=== PATIENT | female | born 1995 | race Caucasian/White ===

== ENCOUNTER 2022-01-06 10:03 | Inpatient (IN) | payer OTHER ==
[~2022-01-06] VITALS: Ht 162.5 cm; Wt 75.3 kg
[2022-01-06 10:09] VITALS: BP 125/80
[2022-01-06 10:50] LABS: BASO # 0.1 10*3/uL (0.0-0.1); BASO % 0.8 % (0.0-1.0); EOS # 0.5 10*3/uL (0.0-0.4); EOS % 6.8 % (1.0-4.0); LYMPH # 1.6 10*3/uL (1.3-4.4); LYMPH % 20.4 % (27.0-41.0); MEAN CELL VOLUME 87.9 fl (81.0-99.0); MEAN PLATELET VOLUME 11.6 fl (9.6-12.3); MONO # 0.6 10*3/uL (0.1-1.0); MONO % 7.9 % (3.0-9.0); NEUT # 4.9 10*3/uL (2.3-7.9); NEUT % 63.8 % (47.0-73.0); PLATELET COUNT AUTOMATED 181 10*3/uL (130-400); RED BLOOD COUNT 4.89 10*6/uL (4.10-5.10); RED CELL DISTRI WIDTH 13.2 % (0-14.5); WHITE BLOOD COUNT 7.7 10*3/uL (4.8-10.8)
[2022-01-06 11:00] LABS: ACT PARTIAL THROMBO TIME 32.2 SECONDS (20.0-32.1)
[2022-01-06 11:05] LABS: BILIRUBIN 2+ (Negative); BLOOD Trace-Lysed (Negative); CLARITY Turbid (Clear); COLOR Dark Yellow (Yellow); GLUCOSE Negative (Negative); KETONE 1+ (Negative); LEUKO ESTERASE 2+ (Negative); NITRITE Negative (Negative); SPECIFIC GRAVITY >= 1.030 (1.001-1.030)
[2022-01-06 11:07] LABS: ALKALINE PHOSPHATASE 44 U/L (45-117); BUN 8 mg/dl (7-24); CHLORIDE 104 mmol/L (98-107); CREATININE 0.96 mg/dL (0.55-1.02); POTASSIUM 3.9 mmol/L (3.5-5.1); SGOT/AST 25 IU/L (3-35); SGPT/ALT 31 U/L (12-78); SODIUM 139 mmol/L (136-145); TOTAL PROTEIN 7.3 gm/dL (6.4-8.2)
[2022-01-06 11:13] LABS: BETA-HCG, QUANT < 1.0 mIU/mL (1-3); ETHYL ALCOHOL < 3.0 mg/dl (<3)
[2022-01-06 11:15] LABS: BACTERIA 3+; EPITHELIAL CELLS 41-50; MUCOUS 3+; WBC TNTC wbc/hpf (0-5)
[2022-01-06 11:21] LABS: URINE AMPHETAMINES > 1000 (1000ng/ml); URINE BARBITURATES < 200 (200ng/ml); URINE BENZODIAZEPINES < 200 (200ng/ml); URINE CANNABINOIDS (THC) < 50 (50ng/ml); URINE COCAINE > 300 (300ng/ml); URINE METHADONE < 300 (300ng/ml); URINE OPIATES < 300 (300ng/ml)
[2022-01-06 11:24] LABS: URINE PHENCYCLIDINE < 25 (25ng/ml)
[2022-01-06 14:15] VITALS: BP 127/76
[2022-01-06 14:29] VITALS: BP 124/76
[2022-01-06 16:00] VITALS: BP 131/78
[2022-01-06 20:00] VITALS: BP 120/71
[2022-01-07] VITALS: BP 129/75
[2022-01-07 08:00] VITALS: BP 105/79
[2022-01-07 12:00] VITALS: BP 117/67
[2022-01-07 16:00] VITALS: BP 119/69
[2022-01-07 20:00] VITALS: BP 124/69
[2022-01-08] VITALS: BP 115/69
[2022-01-08 08:00] VITALS: BP 121/74
[2022-01-08 12:00] VITALS: BP 121/68
[2022-01-08 16:00] VITALS: BP 126/68
[2022-01-08 20:00] VITALS: BP 116/71
[2022-01-09] VITALS: BP 116/58
[2022-01-09 05:40] LABS: CREATININE 1.01 mg/dL (0.55-1.02)
[2022-01-09 06:11] LABS: BASO # 0.1 10*3/uL (0.0-0.1); BASO % 0.9 % (0.0-1.0); EOS # 0.7 10*3/uL (0.0-0.4); HEMATOCRIT 41.4 % (37.0-47.0); LYMPH # 2.6 10*3/uL (1.3-4.4); LYMPH % 39.3 % (27.0-41.0); MEAN CELL VOLUME 88.3 fl (81.0-99.0); MEAN CORPUSCULAR HGB CONC 32.9 g/dl (33.0-37.0); MEAN PLATELET VOLUME 12.7 fl (9.6-12.3); MONO # 0.5 10*3/uL (0.1-1.0); MONO % 8.3 % (3.0-9.0); NEUT # 2.7 10*3/uL (2.3-7.9); NEUT % 41.3 % (47.0-73.0); PLATELET COUNT AUTOMATED 169 10*3/uL (130-400); RED BLOOD COUNT 4.69 10*6/uL (4.10-5.10); RED CELL DISTRI WIDTH 13.3 % (0-14.5); WHITE BLOOD COUNT 6.5 10*3/uL (4.8-10.8)
== END 2022-01-09 07:20 | disposition left against medical advice (07) | DRG 770 ==
LOC: ED 10:03 → EDHOLD 11:20 → 4E 13:13
PROVIDERS: Emergency Medicine; ADMIT Family Medicine; ATTEND Family Medicine
DX: F11.23 Opioid dependence with withdrawal (principal); E44.1 Mild protein-calorie malnutrition; F17.210 Nicotine dependence, cigarettes, uncomplicated; F41.9 Anxiety disorder, unspecified; F15.10 Other stimulant abuse, uncomplicated; Z53.29 Procedure and treatment not carried out because of patient's decision for other reasons; Z88.0 Allergy status to penicillin; Z88.1 Allergy status to other antibiotic agents; Z68.28 Body mass index [BMI] 28.0-28.9, adult; Z80.42 Family history of malignant neoplasm of prostate; N39.0 Urinary tract infection, site not specified